=== PATIENT | female | born 1945 | race Two or more races ===

== ENCOUNTER 2016-12-09 22:46 | Emergency (ER) | payer MEDICARE ==
[2016-12-10 00:58] LABS: ABSOLUTE NEUTROPHIL COUNT 3.9 K/mm3 (1.8-7.7); BASO % 0.3 % (0.2-1.0); EOS # 0.1 (0.0-0.5); EOS % 1.6 % (0.9-2.9); HEMATOCRIT 25.1 % (37.0-47.0); HEMOGLOBIN 8.3 gm/l (12.0-16.0); IMM NEUT% 0.7 % (0-1); LYMPH % 17.3 % (15-45); MEAN CELL VOLUME 88.7 fl (81.0-99.0); MEAN CORPUSCULAR HEMOGLOBIN 29.3 pg (27.0-31.0); MEAN CORPUSCULAR HGB CONC 33.1 g/dl (33.0-37.0); MEAN PLATELET VOLUME 9.1 fl (7.4-10.4); MONO # 0.6 (0.0-0.8); MONO % 11.2 % (4-12); NEUT % 68.9 % (43-75); PLATELET COUNT 169 K/mm3 (130-400); RED CELL DISTRIBUTION WIDTH 13.1 % (11.5-14.5)
[2016-12-10] MEDS ORDERED: FUROSEMIDE 40 MG/4 ML VIAL ONE (01:02)
[2016-12-10] MEDS ORDERED: ASPIRIN CHEWTAB 81 MG TABLET ONE (01:02)
[2016-12-10 01:25] LABS: ALB/GLOB RATIO 1.2 (>1.0); ALBUMIN 3.3 gm/dL (3.5-5.7); CALCIUM 8.3 mg/dL (8.6-10.3)
--- NOTE | 2016-12-10 09:15 | RAD ---
12/10/2016 9:11 AM CHEST - 2 VIEWS History: Cough for 7 weeks Comparison: None Findings: Two views of the chest are obtained. The lungs the straight right greater than left pleural effusions. Associated compressive atelectasis is present though underlying pneumonia cannot be excluded. Lungs are otherwise clear. The cardiomediastinal silhouette mildly enlarged.. The osseous structures are intact.. IMPRESSION: Right greater than left pleural effusions with associated compressive atelectasis. Other findings as above.
== END 2016-12-10 03:50 | disposition short-term general hospital (02) ==
LOC: ED 22:46
DX: I11.0 Hypertensive heart disease with heart failure (principal); I50.9 Heart failure, unspecified; R60.0 Localized edema
CPT/HCPCS: 83880; 85025; 80053; 84484; 71020; 99284 ×2; 96374; A9270; J1940